=== PATIENT | male | born 1955 | race Hispanic/Latino ===

== ENCOUNTER → 2021-12-27 | Outpatient (CLI) | payer MEDICARE, BC | END | disposition home or self-care (01) | LOC: RAH 14:56 | PROVIDERS: ATTEND Physical Medicine & Rehabilitation | DX: M47.812 Spondylosis without myelopathy or radiculopathy, cervical region (principal) | CPT/HCPCS: 72125 ==

== ENCOUNTER → 2024-04-24 | Outpatient (CLI) | payer MEDICARE | END | disposition home or self-care (01) | LOC: RAH 13:34 | PROVIDERS: ATTEND Physical Medicine & Rehabilitation | DX: M47.812 Spondylosis without myelopathy or radiculopathy, cervical region (principal); M54.2 Cervicalgia; M54.81 Occipital neuralgia | CPT/HCPCS: 72141 ==

== ENCOUNTER → 2024-05-20 | Outpatient (CLI) | payer MEDICARE ==
[~2024-05-20] MED LIST: EPINEPHrine PF 1MG (1:1,000) 1 MG/ML AMP ONE
== END | disposition home or self-care (01) ==
LOC: SHCH 14:09
PROVIDERS: ATTEND Internal Medicine Cardiovascular Disease
DX: I08.0 Rheumatic disorders of both mitral and aortic valves (principal); R01.1 Cardiac murmur, unspecified; E11.9 Type 2 diabetes mellitus without complications; E78.5 Hyperlipidemia, unspecified; I11.9 Hypertensive heart disease without heart failure
CPT/HCPCS: 93306

== ENCOUNTER 2024-12-17 05:57 | Observation (INO) | payer MEDICARE, OTHER ==
[2024-12-13 10:31] LABS: APPEARANCE,URINE CLEAR (CLEAR); BILIRUBIN,URINE NEGATIVE (NEGATIVE); COLOR,URINE LIGHT-YELLOW (YELLOW); GLUCOSE, URINE (UA) NEGATIVE (NEGATIVE); KETONES,URINE NEGATIVE (NEGATIVE); LEUKOCYTE ESTERASE ,URINE NEGATIVE Leu/uL (NEGATIVE); NITRATE,URINE NEGATIVE (NEGATIVE); OCCULT BLOOD,URINE NEGATIVE (NEGATIVE); PH,URINE 7.5 (5.0-8.0); PROTEIN,URINE NEGATIVE (NEGATIVE); UROBILINOGEN,URINE 0.2 mg/dL (0.2-1.0)
[2024-12-13 10:32] LABS: BASOPHILS # (AUTO) 0.03 K/uL (0.00-0.20); BASOPHILS % (AUTO) 0.6 % (0.0-5.0); EOSINOPHILS # (AUTO) 0.03 K/uL (0.00-0.70); EOSINOPHILS % (AUTO) 0.6 % (0.0-8.0); HEMATOCRIT 43.9 % (42-54); IMMATURE GRANULOCYTE ABSOLUTE 0.01 K/uL (0-1); LYMPHOCYTES # (AUTO) 1.4 K/uL (1.0-4.8); LYMPHOCYTES % (AUTO) 27.2 % (21.0-51.0); MEAN CORPUSCULAR HEMOGLOBIN 29.7 pg (27.0-33.0); MEAN CORPUSCULAR HGB CONC 33.9 g/dL (32.0-36.0); MEAN CORPUSCULAR VOLUME 87.5 fL (79-99); MONOCYTES # (AUTO) 0.4 K/uL (0.1-1.0); MONOCYTES % (AUTO) 8.2 % (3.0-13.0); NEUTROPHILS # (AUTO) 3.1 K/uL (1.8-7.7); NEUTROPHILS % (AUTO) 63.2 % (40.0-77.0); PLATELET COUNT (AUTO) 175 K/uL (130-400); RED BLOOD CELL COUNT(AUTO) 5.02 MIL/uL (4.50-6.20); RED CELL DISTRIBUTION WIDTH 13.3 % (11.0-15.5)
[2024-12-13 10:33] LABS: ADD UA MICROSCOPIC NO
[2024-12-13 10:42] LABS: CREATININE 0.8 mg/dL (0.5-1.3); POTASSIUM 4.1 mmol/L (3.5-5.1)
[2024-12-13 10:44] LABS: INR 1.04 (0.85-1.15)
[2024-12-13 10:48] VITALS: BP 174/102; PULSE 74; RESP 18; TEMP 97.5
--- NOTE | 2024-12-13 11:00 | NUR ---
PREOP RT INSTRUCTED PT ON INCENTIVE SPIROMETRY
--- NOTE | 2024-12-13 15:12 | EKG ---
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
--- NOTE | 2024-12-16 09:00 | NUR ---
REPORTED EKG TO DR. RENNER. OK TO PROCEED
[2024-12-17] VITALS (28 sets, daily range): BP systolic 122–148; BP diastolic 64–91; PULSE 60–102; RESP 13–20; TEMP 97.2–98; O2SAT 92–98
[~2024-12-17] VITALS: Ht 185.4 cm; Wt 124.7 kg
[~2024-12-17 05:57] MED LIST changes: +AMLO-257 PO; +ASPI-1443 PO; +ATOR10TA69 PO; +BUPR-49 PO; +CETI10TA87 PO; -EPINEPHrine PF 1MG (1:1,000) 1 MG/ML AMP ONE; +ESCI5TAB16 PO; +MELO-108 PO; +METF-444 PO; +METO50TA18 PO; +OLME20TA68 PO; +OMEP20CA12 PO; +SEMA1PEN3 SQ; +TRAZ-187 PO
[2024-12-17] MEDS: 0.9%NACL 1000ML 1,000 ML IV ONE (06:58)
[2024-12-17] MEDS ORDERED: ondanSETRON 4MG INJ ONE ×2 (07:32→10:43)
[2024-12-17] MEDS ORDERED: proPOFol 10 MG/ML 20ML VIAL IV ONE (07:33)
[2024-12-17] MEDS ORDERED: MIDAZOLAM HCL 1 MG/ML 2ML VIAL ONE (07:33)
[2024-12-17] MEDS ORDERED: rocuRONium bROMide 10MG/1ML 5ML VL ONE (07:33)
[2024-12-17] MEDS ORDERED: phenylEPHRINE HCL 10 MG/ML 1ML VIAL IV ONE (07:33)
[2024-12-17] MEDS ORDERED: ROPivacaine 0.5% 5MG/ML 30ML ONE (07:34)
[2024-12-17] MEDS ORDERED: FENTanyl CITRate PF 50 MCG/1 ML 2ML VIAL ONE ×2 (07:34→11:04)
[2024-12-17] MEDS ORDERED: VANCOMYCIN 500MG+NS 100ML 100 ML IV ONE (08:16)
[2024-12-17] MEDS: ceFAZolin SODIUM 2 GM VIAL ONE (08:30)
[2024-12-17] MEDS: ceFAZolin SODIUM 1 GM VIAL ONE ×2 (08:30→09:50)
[2024-12-17] MEDS: TRANEXAMIC ACID 1000MG/10ML ONE (08:38)
[2024-12-17] MEDS ORDERED: GLYCOPYRROLATE 0.2 MG/ML 5 ML VIAL ONE (10:43)
[2024-12-17] MEDS ORDERED: NEOSTIGMINE METHYLSULFATE 1MG/ML IV ONE (10:43)
[2024-12-17] MEDS ORDERED: PoTASSium chloRIDE 20MEQ ER 20 MEQ ERTAB PO PRN (11:00)
[2024-12-17] MEDS ORDERED: CALCIUM CARB 500MG PO PRN (11:00)
[2024-12-17] MEDS ORDERED: PoTASSium chloRIDE 20MEQ/100ML 100 ML IV PRN (11:00)
[2024-12-17] MEDS ORDERED: DiphenhydrAMINE HCL 50 MG/ML VIAL IVP PRN (11:00)
[2024-12-17] MEDS ORDERED: ondanSETRON 4MG INJ IVP PRN (11:00)
[2024-12-17] MEDS ORDERED: FERROUS FUMARATE 324 MG TABLET PO PRN (11:00)
[2024-12-17] MEDS ORDERED: ketOROlac 15MG/ML VIAL (15MG/ML) IV PRN (11:00)
[2024-12-17] MEDS ORDERED: PoTASSium chl 10% ELIXIR 20MEQ 20 MEQ/15 ML UDCUP PO PRN (11:00)
[2024-12-17] MEDS: INSULIN humuLIN R 100 UNIT/ML 3ML SQ SCH (11:30)
--- NOTE | 2024-12-17 12:30 | NUR ---
Pt is received from recovery room status post Total knee replacement. He is alert and in no distress. He has his family at bedside. The patient is oriented to the room and in the use of the call ryan. ICe is applied to the left knee. The knee is wrapped with young bandage and he has a JOSUÉ dressing underneath. The bed is in a low positon and the call ryan is in reach.
[2024-12-17] MEDS: 0.9%NACL 1000ML 1,000 ML IV SCH (13:00)
[2024-12-17] MEDS: OXYcodONE HCL 5 MG TAB PO PRN (13:08)
[2024-12-17] MEDS: acetaMINOPHEN 500 MG TABLET PO SCH (13:09)
--- NOTE | 2024-12-17 15:00 | NUR ---
ORTHO COORDINATOR: TEACHING REGARDING DVT AND PNEUMONIA PREVENTION, PAIN MANAGEMENT AND PAIN EXPECTATIONS. PATIENT IN BED. B SCD SLEEVES IN PLACE AND FUNCTIONING. PRIMARY NURSE AT BEDSIDE. PLAN OF CARE DISCUSSED. PER PRIMARY NURSE, RESPIRATORY THERAPY HAS BEEN NOTIFIED OF PATIENT ARRIVAL. REVIEWED FREQUENCY OF INCENTIVE SPIROMETRY USE, RATIONALE PROVIDED. PATIENT RETURN DEMONSTRATED PROPER FOOT FLEXION/EXTENSION EXERCISES. NUMERIC PAIN SCALE REVIEWED. PATIENT INSTRUCTED PAIN MEDICATION MUST BE REQUESTED, ENCOURAGED PATIENT TO SET ALARM EVERY FOUR HOURS AND PERFORM A SELF PAIN ASSESSMENT. PATIENT VERBALIZED UNDERSTANDING. PATIENT INSTRUCTED AFTER SELF EVALUATION TO CALL NURSE TO RECEIVE APPROPRIATE MEDICATION FOR PAIN LEVEL. PATIENT VERBALIZED UNDERSTANDING. ICE PACK TO SURGICAL SITE. JOSUÉ DRESSING INTACT AND FUNCTIONING. PATIENT INSTRUCTED TO KEEP JOSUÉ CARTRIDGE IN POCKET OR ATTACHED TO NECK OF GOWN. PATIENT VERBALIZED UNDERSTANDING. NO ADDITIONAL QUESTIONS/CONCERNS AT THIS TIME. Addendum: 12/17/24 at 1703 by WES VALDEZ RN RN EXPECTATION SET FOR PATIENT TO SHOWER TOMORROW.
[2024-12-17] MEDS: ceFAZolin SODIUM 2 GM VIAL IVP SCH (16:05)
[2024-12-17] MEDS: traMADol HCL 50 MG TABLET PO PRN (16:05)
--- NOTE | 2024-12-17 18:00 | NUR ---
Helped the PT back to bed he is using a walker to get to and fro his chair. His pain is under control and is using his IS as ordered.
[2024-12-17] MEDS: amLODIPine 5 MG TAB PO SCH (21:01)
[2024-12-17] MEDS: CeleCOXib 200 MG CAP PO SCH (21:01)
[2024-12-17] MEDS: atorVAStatin 10 MG TABLET PO SCH (21:01)
[2024-12-17] MEDS: FAMOTIDINE 20MG TAB PO SCH (21:01)
[2024-12-17] MEDS: LoSARTan 100 MG TABLET PO SCH (21:01)
[2024-12-17] MEDS: metoPROLOL tartRATE 50 MG TAB PO SCH (21:02)
--- NOTE | 2024-12-17 21:20 | OP ---
Operative Note: DATE OF PROCEDURE: 12/17/24 SURGEON: PORTER HERNANDEZ MD SWEATBAND FLANGER: [Eunice Dugan CFA] ANESTHESIA: [General anesthesia plus regional block] ANESTHESIOLOGIST/DIETIST: [Right and walker CRNA] PREOPERATIVE DIAGNOSIS: [Left knee osteoarthritis] POSTOPERATIVE DIAGNOSIS: [Left knee osteoarthritis] IMPLANTS: [Biomet vanguard. Femur 72.5 PS left. Tibia size 83 fixed cruciate. Patella size 37 by 10 mm asymmetric component. Tibial liner size 79/80 3 x 10 PS] PROCEDURE: [Left total knee arthroplasty] ESTIMATED BLOOD LOSS: [100 mL] INDICATIONS: [The patient is a 69-year-old male with a history of pain to the left knee secondary to osteoarthritis. The patient has no longer responded to conservative treatment and is brought to the operating room for a left total knee arthroplasty. Procedure understood, risks, benefits and possible compl ications and the patient agreed signed the consent form.] DESCRIPTION OF PROCEDURE: [After adequate general anesthesia was achieved and regional block obtained the left lower extremity was prepped and draped in the usual manner previous placement of the tourniquet in the proximal thigh. The extremity was then elevated and exsanguinated with an Esmarch bandage and the tourniquet inflated to 250 mmHg the Esmarch band been then removed. With the knee in flexion a longitudinal incision was then made in the anterior aspect through the skin followed by dissection of the subcutaneous tissue. A bone infusion needle was then inserted just medial to the tibial tuberosity into the proximal metaphysis and through these we proceeded to inject a solution of 500 mg of vancomycin mixed with 50 mL of normal saline proceeded then to remove the trocar. A paramedian approach was then made with the Bovie cautery cutting through the quadriceps tendon, medial patellar retinaculum and patellar tendon retinaculum. The retropatellar tendon fat was then excised and the soft tissue elements of the tibia were elevated subperiosteally and retractors were applied medially and laterally . The anterior and posterior cruciate ligaments were resected. With the use of a drill a starting hole was made in the distal femur entering the intramedullary canal and then after removal of the drill an intramedullary guide was inserted with a 5 degree valgus block that touched the distal femur and to this the distal femoral cutting guide was then applied anteriorly and was secured to the distal femur with the use of pins. The intramedullary guide was then removed and with the use of the oscillating saw we proceeded to resect the distal femur removing the fragments and the guide. The femoral sizer was then applied distally and drill holes were made removing the sizer and the 4-in-1 cutting block was then inserted and the anterior, posterior and chamfer cuts were made removing the fragments and the block. The posterior cruciate ligament retractor was then inserted posterior to the tibia and this was brought forward proceeding then to apply the external tibial alignment guide and secured the proximal cutting guide to the tibia with the use of pins. With the use of the oscillating saw the proximal cut to the tibia tibia was made. The bone fragment was removed and the trial tibia plate was chosen. At this point the menisci were removed sharply and with the use of the curved osteotome the posterior osteophytes of the femur were removed. The PS cutting guide was then inserted and the intercondylar cut was made removing the fragment and the guide. The trial components were then inserted at the femur and tibia with a trial tibial liner bringing the knee into extension noticing that the patient had a very stable knee in flexion, extension and with valgus and varus stress. The knee was maintained in extension and the patella was then addressed proceeding to measure its thickness and then with the use of the oscillating saw we removed 10 mm from the articular surface and restored the height with application of a trial component after 3 peg holes were made. The patellofemoral ligament was removed and then the patellofemoral tracking was checked noticing to be slightly tilted and for this reason a small lateral release was performed bringing the tracking back to normal. At this moment all the components were removed, the tibia after the metaphyseal defect was created and while cement was being mixed on the back table we proceeded to irrigate the joint with antibiotic solution and then cover the entry to the femoral canal with a bone plug. Once the cement was ready we proceeded to apply it first to the tibia surface inserting the final component and then to the femoral surface and inserted the final component removing the excess cement and then applying a trial liner bringing the knee into extension for compression. Then we proceeded to irrigate the patella surface and dried it applying then bone cement and the final patellar component was inserted and was secured with application of a clamp. The joint was irrigated with a warm diluted Betadine solution while the cement dried followed by irrigation with antibiotic solution. The trial liner was removed as well as the patellar clamp and we proceeded then to irrigate the posterior aspect of the joint to remove all the remaining debris and the final tibial liner was inserted and locked against the tibia . The range of motion was checked and noticed to be adequate with full extension and flexion, no laxity in valgus or varus stress and with adequate patellofemoral tracking. The patient had no anterior or posterior drawer. After further irrigation the wound the tourniquet was deflated and we proceeded with hemostasis. The wound was then closed with approximation of the quadriceps tendon, patellar retinaculum and patellar tendon retinaculum with #1 Vicryl close stitches alternating with #1 Ethibond stitches, and closure of the subcutaneous tissue with 2-0 Monocryl inverted stitches and the skin was closed with 3-0 Monocryl subcuticularly. The wound was covered with a suction dressing followed by application of an Luciano bandage for compression and the drapes were then removed transferring the patient to the hospital bed and taken to recovery room for follow-up by anesth esia. There were no complications during the procedure.] PORTER HERNANDEZ MD December 17, 2024 21:20
[2024-12-18] VITALS (10 sets, daily range): BP systolic 119–149; BP diastolic 70–82; PULSE 74–96; RESP 17–22; TEMP 98–98.6; O2SAT 95–100
[2024-12-18 06:15] LABS: HEMATOCRIT 35.5 % (42-54); MEAN CORPUSCULAR HEMOGLOBIN 29.9 pg (27.0-33.0); MEAN CORPUSCULAR HGB CONC 34.4 g/dL (32.0-36.0); RED BLOOD CELL COUNT(AUTO) 4.08 MIL/uL (4.50-6.20); RED CELL DISTRIBUTION WIDTH 13.2 % (11.0-15.5); WHITE BLOOD COUNT (AUTO) 8.2 K/uL (4.8-10.8)
[2024-12-18 06:47] LABS: CREATININE 0.9 mg/dL (0.5-1.3)
[2024-12-18] MEDS: OXYcodONE HCL 5 MG TAB PO PRN (06:51)
--- NOTE | 2024-12-18 07:57 | PN ---
Ortho postop day one. This morning patient is awake alert and oriented he is seated out of bed enjoying his breakfast. is at the bedside. Reporting adequate pain control. Laboratory results reviewed. Noted to have a drop in hemoglobin and hematocrit as expected after TKA. Patient is currently asymptomatic. Vital signs have been stable. Afebrile. He is voiding on his own without difficulty. Performing incentive spirometry with adequate returned demonstration. Currently has a SCD stockings on but not connected to machine. Ice is present to op-site. Luciano bandage has been removed and the PICCO dressing is intact. Device flashing green. He is alternating extension and flexion while seated in a chair using a footstool. Operative findings discussed with the patient. Tolerating therapy yesterday ambulating about 20 ft and ambulating with the confines of his room. pending further physical therapy this morning. Anticipated discharge goal [place] [place]. Assessment: Status post left total knee arthroplasty. Asymptomatic acute postoperative blood loss anemia. Plan: Continue with Dr. Preciado TKA protocol and discharge planning. Asymptomatic acute postoperative blood loss anemia addressed per protocol as necessary Vitals/Labs Vital Signs Date Time Temp Pulse Resp B/P (MAP) Pulse Ox O2 Delivery O2 Flow Rate FiO2 12/18/24 06:36 74 18 N/A Room Air 21 12/18/24 04:00 98.4 124/79 93 12/17/24 20:00 0 Laboratory Tests 12/18/24 05:57 Medications Current Medications Cefazolin Sodium 1 gm STK-MED ONCE .ROUTE Last administered on 12/17/24at 08:30; Start 12/17/24 at 06:15; Stop 12/17/24 at 06:15; Status DC Cefazolin Sodium 2 gm STK-MED ONCE .ROUTE Last administered on 12/17/24at 08:30; Start 12/17/24 at 06:15; Stop 12/17/24 at 06:15; Status DC Sodium Chloride 1,000 ml @ As Directed STK-MED ONCE IV Last administered on 12/17/24at 06:58; Start 12/17/24 at 06:15; Stop 12/17/24 at 06:15; Status DC Ondansetron HCl 4 mg STK-MED ONCE .ROUTE; Start 12/17/24 at 07:32; Stop 12/17/24 at 07:32; Status DC Propofol 200 mg STK-MED ONCE IV; Start 12/17/24 at 07:33; Stop 12/17/24 at 07:33; Status DC Phenylephrine HCl 10 mg STK-MED ONCE IV; Start 12/17/24 at 07:33; Stop 12/17/24 at 07:33; Status DC Midazolam HCl 2 mg STK-MED ONCE .ROUTE; Start 12/17/24 at 07:33; Stop 12/17/24 at 07:33; Status DC Rocuronium [place] 50 mg STK-MED ONCE .ROUTE; Start 12/17/24 at 07:33; Stop 12/17/24 at 07:34; Status DC Fentanyl Citrate 100 mcg STK-MED ONCE .ROUTE; Start 12/17/24 at 07:34; Stop 12/17/24 at 07:34; Status DC Ropivacaine 150 mg STK-MED ONCE .ROUTE; Start 12/17/24 at 07:34; Stop 12/17/24 at 07:34; Status DC Tranexamic Acid 1,000 mg STK-MED ONCE .ROUTE Last administered on 12/17/24at 08:38; Start 12/17/24 at 08:07; Stop 12/17/24 at 08:08; Status DC Vancomycin HCl 100 ml @ As Directed STK-MED ONCE IV; Start 12/17/24 at 08:16; Stop 12/17/24 at 08:16; Status DC Cefazolin Sodium 1 gm STK-MED ONCE .ROUTE Last administered on 12/17/24at 09:50; Start 12/17/24 at 08:17; Stop 12/17/24 at 08:18; Status DC Ondansetron HCl 4 mg STK-MED ONCE .ROUTE; Start 12/17/24 at 10:43; Stop 12/17/24 at 10:43; Status DC Glycopyrrolate 1 mg STK-MED ONCE .ROUTE; Start 12/17/24 at 10:43; Stop 12/17/24 at 10:43; Status DC Neostigmine Methylsulfate 10 mg STK-MED ONCE IV; Start 12/17/24 at 10:43; Stop 12/17/24 at 10:43; Status DC Sodium Chloride 1,000 ml @ 100 mls/hr Q10H IV Last administered on 12/18/24at 04:01; Start 12/17/24 at 11:00; Stop 12/18/24 at 10:59 Polyethylene Glycol 17 gm DAILY PO; Start 12/18/24 at 09:00; Stop 01/17/25 at 08:59 Bisacodyl 10 mg DAILY PRN RC; Start 12/20/24 at 11:00; Stop 01/19/25 at 10:59 Ketorolac Tromethamine 15 mg Q6H PRN IV; Start 12/17/24 at 11:00; Stop 12/22/24 at 10:59 Famotidine 20 mg BID PO Last administered on 12/17/24at 21:01; Start 12/17/24 at 21:00; Stop 01/16/25 at 20:59 Tamsulosin HCl 0.4 mg DAILY PO; Start 12/18/24 at 09:00; Stop 01/17/25 at 08:59 Ferrous Fumarate 324 mg DAILY PRN PO; Start 12/17/24 at 11:00; Stop 01/16/25 at 10:59 Ondansetron HCl 4 mg Q6H PRN IVP; Start 12/17/24 at 11:00; Stop 01/16/25 at 10:59 Calcium Carbonate 500 mg Q12H PRN PO; Start 12/17/24 at 11:00; Stop 01/16/25 at 10:59 Diphenhydramine HCl 25 mg Q6H PRN IVP; Start 12/17/24 at 11:00; Stop 01/16/25 at 10:59 Insulin Human Regular INSULIN SLIDING SCAL... ACHS SQ; Start 12/17/24 at 11:30; Stop 01/16/25 at 11:29 Cefazolin Sodium 2 gm Q8H IVP Last administered on 12/17/24at 23:52; Start 12/17/24 at 16:00; Stop 12/18/24 at 00:01; Status DC Potassium Chloride 100 ml @ 100 mls/hr AD PRN IV; Start 12/17/24 at 11:00; Stop 01/16/25 at 10:59 Potassium Chloride 20 meq AD PRN PO; Start 12/17/24 at 11:00; Stop 01/16/25 at 10:59 Potassium Chloride 20 meq AD PRN PO; Start 12/17/24 at 11:00; Stop 01/16/25 at 10:59 Celecoxib 200 mg BID PO Last administered on 12/17/24at 21:01; Start 12/17/24 at 21:00; Stop 01/16/25 at 20:59 Oxycodone HCl 5 mg Q4H PRN PO Last administered on 12/18/24at 06:51; Start 12/17/24 at 11:00; Stop 12/24/24 at 10:59 Oxycodone HCl 10 mg Q4H PRN PO Last administered on 12/17/24at 13:08; Start 12/17/24 at 11:00; Stop 12/24/24 at 10:59 Tramadol HCl 50 mg Q6H PRN PO Last administered on 12/17/24at 16:05; Start 12/17/24 at 11:00; Stop 12/22/24 at 10:59 Acetaminophen 1,000 mg Q8H PO Last administered on 12/18/24at 04:01; Start 12/17/24 at 11:00; Stop 01/16/25 at 10:59 Apixaban 2.5 mg BID PO; Start 12/18/24 at 09:00; Stop 01/17/25 at 08:59 Fentanyl Citrate 100 mcg STK-MED ONCE .ROUTE; Start 12/17/24 at 11:04; Stop 12/17/24 at 11:05; Status DC Amlodipine Besylate 5 mg HS PO Last administered on 12/17/24at 21:01; Start 12/17/24 at 21:00; Stop 01/16/25 at 20:59 Atorvastatin Calcium 10 mg HS PO Last administered on 12/17/24at 21:01; Start 12/17/24 at 21:00; Stop 01/16/25 at 20:59 Metformin HCl 500 mg AM PO; Start 12/18/24 at 09:00; Stop 01/17/25 at 08:59 Metoprolol Tartrate 50 mg BID PO Last administered on 12/17/24at 21:02; Start 12/17/24 at 21:00; Stop 01/16/25 at 20:59 Citalopram Hydrobromide 10 mg DAILY PO; Start 12/18/24 at 09:00; Stop 01/17/25 at 08:59 Losartan Potassium 100 mg HS PO Last administered on 12/17/24at 21:01; Start 12/17/24 at 21:00; Stop 01/16/25 at 20:59 QASIM GUIDRY NP December 18, 2024 07:57
[2024-12-18] MEDS: APIXaban 2.5 MG TABLET PO SCH (09:17)
[2024-12-18] MEDS: tamSULOsin HCL 0.4 MG CAP.ER.24H PO SCH (09:18)
[2024-12-18] MEDS: citaLOPram 20 MG TABLET PO SCH (09:18)
[2024-12-18] MEDS: metFORmin HCL 500 MG TABLET PO SCH (09:18)
[2024-12-18] MEDS: polyETHYLene GLYCol 3350 17 GM POWD.PACK PO SCH (09:18)
--- NOTE | 2024-12-18 13:00 | NUR ---
CM NOTE/[facility] CM spoke to patient and spouse regarding d/c planning. Patient reports he was previously independent with ADL's. Denies having any home services. Patient has a standard walker without wheels. Reports his bathroom is handicapped equipped. Patient states he has discussed plan with MD and prefers rehab placement. CM offered in network choices and obtained BETH for #[address] [facility] and #2 [facility]. CM sent referral to [facility]. Per Ilana at [facility], they have bed availability. CM to f/u. Addendum: 12/18/24 at 1549 by AILYN GANDHI CM Amended: Links added.
--- NOTE | 2024-12-18 14:33 | NUR ---
CM NOTE/[facility] REFERRAL CM spoke to Ilana with [facility]. States their medical education coordinator has declined patient. CM sent referral to [facility] per previous conversation with patient. CM also notified Dr. Preciado of changes. CM to f/u.
--- NOTE | 2024-12-18 16:50 | NUR ---
ORTHO COORDINATOR: REINFORCED TEACHING. PATIENT IN BED. PAIN CONTROLLED. JOSUÉ DRESSING INTACT AND FUNCTIONING. PATIENT REPORTS PERFORMING INCENTIVE SPIROMETER 2 TIMES TODAY. RE-EDUCATED TO PERFORM AT MINIMUM EVERY 2 HOURS/10 BREATHS. REINFORCED SHOWERING. PATIENT WILL ATTEMPT TONIGHT. NO ADDITIONAL QUESTIONS/CONCERNS.
[2024-12-18] MEDS: trAZOdone HCL 100 MG TABLET PO SCH (21:34)
[2024-12-19] VITALS (8 sets, daily range): BP systolic 99–118; BP diastolic 59–84; PULSE 70–92; RESP 18–20; TEMP 97.6–98.6; O2SAT 94–100
[2024-12-19] MEDS: ceTIRIzine HCL 5 MG TABLET PO SCH (08:50)
[2024-12-19] MEDS: PANTOPrazole 40 MG TAB DR PO SCH (08:50)
[2024-12-19] MEDS: buPROPion HCL 150 MG TABLET.SA PO SCH (08:51)
--- NOTE | 2024-12-19 16:10 | NUR ---
ORTHO COORDINATOR: REINFORCED TEACHING. PATIENT IN BED, REPORTS PHYSICAL THERAPY SESSION WENT WELL. PATIENT REPORTS SHOWERING. PAIN CONTROLLED. REINFORCED TEACHING. PATIENT REPORTS UTILIZING INCENTIVE SPIROMETER DIRECTED. NO ADDITIONAL QUESTIONS/CONCERNS AT THIS TIME.
--- NOTE | 2024-12-19 16:59 | NUR ---
CM NOTE/STR APPROVED CM spoke to Irene BONNER with DC. States patient has approval for [facility]. SAW spoke to Gaurav with [facility] and verified they received approval. CM updated primary nurse and Dr. Preciado with approval. Anticipate d/c today. EMS arranged. Addendum: 12/19/24 at 1700 by AILYN GANDHI CM Amended: Links added.
--- NOTE | 2024-12-19 19:05 | PN ---
Postop day 2. The status post total knee arthroplasty. Patient was seen early this morning Vital signs stable, afebrile. The patient was noted selected by [facility] inpatient rehab and the immigration case worker send a referral to [facility] rehab in [place]. The patient has been made aware of this. He has pain level is under adequate control but still moderate to significant. The patient is eating well. Has not had any other complaints except for the pain. He did very well with physical therapy yesterday. His dressing is intact. His knee has very mild edema than there is no distal neurovascular abnormalities. Assessment: Status post total knee arthroplasty. Plan: Await for response from [facility] reh. If not accepted the patient will be given the option of going home or [facility]. Continue physical therapy and rehabilitation Vitals/Labs Vital Signs Date Time Temp Pulse Resp B/P (MAP) Pulse Ox O2 Delivery O2 Flow Rate FiO2 12/19/24 18:48 70 18 N/A Room Air 21 12/19/24 16:50 98.6 101/75 99 12/18/24 20:00 0 Medications Current Medications Cefazolin Sodium 1 gm STK-MED ONCE .ROUTE Last administered on 12/17/24at 08:30; Start 12/17/24 at 06:15; Stop 12/17/24 at 06:15; Status DC Cefazolin Sodium 2 gm STK-MED ONCE .ROUTE Last administered on 12/17/24at 08:30; Start 12/17/24 at 06:15; Stop 12/17/24 at 06:15; Status DC Sodium Chloride 1,000 ml @ As Directed STK-MED ONCE IV Last administered on 12/17/24at 06:58; Start 12/17/24 at 06:15; Stop 12/17/24 at 06:15; Status DC Ondansetron HCl 4 mg STK-MED ONCE .ROUTE; Start 12/17/24 at 07:32; Stop 12/17/24 at 07:32; Status DC Propofol 200 mg STK-MED ONCE IV; Start 12/17/24 at 07:33; Stop 12/17/24 at 07:33; Status DC Phenylephrine HCl 10 mg STK-MED ONCE IV; Start 12/17/24 at 07:33; Stop 12/17/24 at 07:33; Status DC Midazolam HCl 2 mg STK-MED ONCE .ROUTE; Start 12/17/24 at 07:33; Stop 12/17/24 at 07:33; Status DC Rocuronium [place] 50 mg STK-MED ONCE .ROUTE; Start 12/17/24 at 07:33; Stop 12/17/24 at 07:34; Status DC Fentanyl Citrate 100 mcg STK-MED ONCE .ROUTE; Start 12/17/24 at 07:34; Stop 12/17/24 at 07:34; Status DC Ropivacaine 150 mg STK-MED ONCE .ROUTE; Start 12/17/24 at 07:34; Stop 12/17/24 at 07:34; Status DC Tranexamic Acid 1,000 mg STK-MED ONCE .ROUTE Last administered on 12/17/24at 08:38; Start 12/17/24 at 08:07; Stop 12/17/24 at 08:08; Status DC Vancomycin HCl 100 ml @ As Directed STK-MED ONCE IV; Start 12/17/24 at 08:16; Stop 12/17/24 at 08:16; Status DC Cefazolin Sodium 1 gm STK-MED ONCE .ROUTE Last administered on 12/17/24at 09:50; Start 12/17/24 at 08:17; Stop 12/17/24 at 08:18; Status DC Ondansetron HCl 4 mg STK-MED ONCE .ROUTE; Start 12/17/24 at 10:43; Stop 12/17/24 at 10:43; Status DC Glycopyrrolate 1 mg STK-MED ONCE .ROUTE; Start 12/17/24 at 10:43; Stop 12/17/24 at 10:43; Status DC Neostigmine Methylsulfate 10 mg STK-MED ONCE IV; Start 12/17/24 at 10:43; Stop 12/17/24 at 10:43; Status DC Sodium Chloride 1,000 ml @ 100 mls/hr Q10H IV Last administered on 12/18/24at 04:01; Start 12/17/24 at 11:00; Stop 12/18/24 at 10:59; Status DC Polyethylene Glycol 17 gm DAILY PO Last administered on 12/19/24at 08:51; Start 12/18/24 at 09:00; Stop 01/17/25 at 08:59 Bisacodyl 10 mg DAILY PRN RC; Start 12/20/24 at 11:00; Stop 01/19/25 at 10:59 Ketorolac Tromethamine 15 mg Q6H PRN IV; Start 12/17/24 at 11:00; Stop 12/22/24 at 10:59 Famotidine 20 mg BID PO Last administered on 12/18/24at 09:17; Start 12/17/24 at 21:00; Stop 12/18/24 at 14:33; Status DC Tamsulosin HCl 0.4 mg DAILY PO Last administered on 12/19/24at 08:50; Start 12/18/24 at 09:00; Stop 01/17/25 at 08:59 Ferrous Fumarate 324 mg DAILY PRN PO; Start 12/17/24 at 11:00; Stop 01/16/25 at 10:59 Ondansetron HCl 4 mg Q6H PRN IVP; Start 12/17/24 at 11:00; Stop 01/16/25 at 10:59 Calcium Carbonate 500 mg Q12H PRN PO; Start 12/17/24 at 11:00; Stop 01/16/25 at 10:59 Diphenhydramine HCl 25 mg Q6H PRN IVP; Start 12/17/24 at 11:00; Stop 01/16/25 at 10:59 Insulin Human Regular INSULIN SLIDING SCAL... ACHS SQ; Start 12/17/24 at 11:30; Stop 01/16/25 at 11:29 Cefazolin Sodium 2 gm Q8H IVP Last administered on 12/17/24at 23:52; Start 12/05 10/29 at 16:00; Stop 12/18/24 at 00:01; Status DC Potassium Chloride 100 ml @ 100 mls/hr AD PRN IV; Start 12/17/24 at 11:00; Stop 01/16/25 at 10:59 Potassium Chloride 20 meq AD PRN PO; Start 12/17/24 at 11:00; Stop 01/16/25 at 10:59 Potassium Chloride 20 meq AD PRN PO; Start 12/17/24 at 11:00; Stop 01/16/25 at 10:59 Celecoxib 200 mg BID PO Last administered on 12/19/24at 08:50; Start 12/17/24 at 21:00; Stop 01/16/25 at 20:59 Oxycodone HCl 5 mg Q4H PRN PO Last administered on 12/18/24 06:51; Start 12/17 at 11:00; Stop 12/24/24 at 10:59 Oxycodone HCl 10 mg Q4H PRN PO Last administered on 12/19/24at 06:52; Start 12/17/24 at 11:00; Stop 12/24/24 at 10:59 Tramadol HCl 50 mg Q6H PRN PO Last administered on 12/17/24at 16:05; Start 12/17/24 at 11:00; Stop 12/22/24 at 10:59 Acetaminophen 1,000 mg Q8H PO Last administered on 12/19/24at 12:11; Start 12/17/24 at 11:00; Stop 01/16/25 at 10:59 Apixaban 2.5 mg BID PO Last administered on 12/19/24at 08:50; Start 12/18/24 at 09:00; Stop 01/17/25 at 08:59 Fentanyl Citrate 100 mcg STK-MED ONCE .ROUTE; Start 12/17/24 at 11:04; Stop 12/17/24 at 11:05; Status DC Amlodipine Besylate 5 mg HS PO Last administered on 12/18/24 21:33; Start 12/17/24 at 21:00; Stop 01/16/25 at 20:59 Atorvastatin Calcium 10 mg HS PO Last administered on 12/18/24at 21:33; Start 12/17/24 at 21:00; Stop 01/16/25 at 20:59 Metformin HCl 500 mg AM PO Last administered on 12/19/24at 08:50; Start 12/18/24 at 09:00; Stop 01/17/25 at 08:59 Metoprolol Tartrate 50 mg BID PO Last administered on 12/19/24at 08:58; Start 12/17/24 at 21:00; Stop 01/16/25 at 20:59 Citalopram Hydrobromide 10 mg DAILY PO Last administered on 12/19/24at 08:51; Start 12/18/24 at 09:00; Stop 01/17/25 at 08:59 Losartan Potassium 100 mg HS PO Last administered on 12/18/24at 21:34; Start 12/17/24 at 21:00; Stop 01/16/25 at 20:59 Trazodone HCl 100 mg HS PO Last administered on 12/18/24at 21:34; Start 12/18/24 at 21:00; Stop 01/17/25 at 20:59 Bupropion HCl 150 mg AM PO Last administered on 12/19/24at 08:51; Start 12/19/24 at 09:00; Stop 01/18/25 at 08:59 Cetirizine HCl 10 mg DAILY PO Last administered on 12/19/24at 08:50; Start 12/19/24 at 09:00; Stop 01/18/25 at 08:59 Pantoprazole Sodium 40 mg DAILY PO Last administered on 12/19/24at 08:50; Start 12/19/24 at 09:00; Stop 01/18/25 at 08:59 PORTER HERNANDEZ MD December 19, 2024 19:05
--- NOTE | 2024-12-19 19:30 | NUR ---
REPORT REPORT GIVEN TO [facility] TO AIDEN DAVIS RN CHARGE NURSE
--- NOTE | 2024-12-19 20:00 | NUR ---
discharge discharge instructions given, patient verbalizes understanding via teach back, discontinue saline lock right forearm, no redness or swelling noted, apply 2x2 and paper tape, ems notified pending transfer to [facility]
--- NOTE | 2024-12-19 20:11 | DS ---
DISCHARGE SUMMARY [ [Date of admission: 12/17/2024 Date of discharge: 12/19/2024 Final diagnosis: Left knee osteoarthritis Knee osteoarthritis Surgical procedures: Left total Knee arthroplasty on 12/17/2024 Summary of History and Physical: The patient is a 69 year-old male patient with history of severe arthrosis to the left knee that has been present for several years and has been treated conservatively with no longer adequate response to treatment. The patient is being admitted for total knee arthroplasty. Previous medical history: TIA, hypertension, hyperlipidemia, sleep apnea, anxiety, depression, Previous surgical history: Denies previous surgical history Family history: Hypertension, heart disease Social history: Negative for use of tobacco or alcohol. Allergies: NKDA. Review of system: Negative on admission Hospital course: The patient was admitted and taken to the operating room for a total knee arthroplasty, procedure that went uneventful. Postoperatively the patient remained hemodynamically stable and afebrile. The patient received ant ibiotic and anticoagulation prophylaxis as per protocol. The patient was evaluated by physical therapy and started rehabilitation treatment with ambulation with the use of walker, weightbearing as tolerated, range of motion exercises and bed transfers. The patient was also evaluated by case management and arrangements were made for discharge. The patient tolerated diet well. On postop day #2 all the arrangements were completed and the patient was dismissed. Condition on discharge: Good Disposition: The patient will be dismissed to [facility] rehab. Follow-up will be done at the office in 3 weeks. The patient is to continue with physical therapy and rehabilitation at the rehab facility and be ambulatory with the use of a walker, weightbearing as tolerated. Continue taking pain medication as instructed as well as anticoagulation prophylaxis. Continue with home medications also as instructed and continue with pre admission diet.] PORTER HERNANDEZ MD ] PORTER HERNANDEZ MD December 19, 2024 20:11
--- NOTE | 2024-12-19 21:00 | NUR ---
DISCHARGE EMS PATIENT DISCHARGE VIA EMS, PERSONAL BELONGINGS WITH PATIENT, PER PATIENT WILL CALL FAMILY TO LET THEM KNOW HE IS IN ROUTE TO [facility]
[2024-12-20] MEDS ORDERED: BisaCODYL 10 MG SUPP.RECT RC PRN (11:00)
== END 2024-12-19 21:05 ==
LOC: DAH 05:57 → DAHIP 05:58 → DAH 05:58 → 4DH 12:17
PROVIDERS: ADMIT Orthopaedic Surgery; ATTEND Orthopaedic Surgery
DX: M17.12 Unilateral primary osteoarthritis, left knee (principal); G89.18 Other acute postprocedural pain; E78.5 Hyperlipidemia, unspecified; I10 Essential (primary) hypertension; D62 Acute posthemorrhagic anemia; F41.9 Anxiety disorder, unspecified; F32.A Depression, unspecified; G47.30 Sleep apnea, unspecified; Z86.73 Personal history of transient ischemic attack (TIA), and cerebral infarction without residual deficits; Z79.899 Other long term (current) drug therapy
CPT/HCPCS: 80048 ×2; 85025; 85610; 87086; 81003; 36415 ×2; 93005; 87641; 27447; 96365; 96366 ×2; 64447; 82948 ×12; 97161; 97116 ×5; 97530 ×10; 85027; G0378 ×53; A4663; J7120; J3010 ×2; J0690 ×5; J3490 ×3; J7030; J2250; J2704; J2405 ×2; J2710; J2795; J2371; J3370; A9272; A4649 ×3; A4930 ×2; C1713; C1776; A5120; A4215; A4223 ×2; A4213; A4222; A4221; A4216; J1885

== ENCOUNTER → 2025-07-15 | Outpatient (CLI) | payer OTHER ==
[~2025-07-15] MED LIST changes: -ASPI-1443 PO; -MELO-108 PO
--- NOTE | 2025-07-16 14:28 | HMCIMG ---
EXAM: CT Cardiac calcium scoring. CLINICAL HISTORY: Screening. TECHNIQUE: Thin collimated axial CT cardiac images were obtained. A CT scan is done according to ALARA (As Low As Reasonably Achievable). CONTRAST: None. COMPARISON: None provided. FINDINGS: Calcium Score: VESSEL Number of lesions Volume mm3 Equi. Mass/mg Calcium score LM 2 26.0 - 40.7 LAD 10 227.4 - 322.4 LCX 3 99.0 - 122.0 RCA 22 1183.8 - 1565.2 Total 37 1536.2 - 2050.3 IMPRESSION The total calcium score is 2050.3. 94th percentile. Aneurysm of the ascending aorta measuring 4.6 cm. /[place]
== END | disposition home or self-care (01) ==
LOC: RAH 13:01
PROVIDERS: ATTEND Internal Medicine Cardiovascular Disease
DX: Z13.6 Encounter for screening for cardiovascular disorders (principal); I71.21 Aneurysm of the ascending aorta, without rupture
CPT/HCPCS: 75571